=== PATIENT | female | born 1945 | race Two or more races ===

== ENCOUNTER 2024-02-25 10:21 | Emergency (ER) | payer OTHER ==
[~2024-02-25] VITALS: Ht 152.4 cm; Wt 72.9 kg
[~2024-02-25 10:21] MED LIST: AMLO1TAB22 PO; ATEN-60 PO; METF-370 PO
[2024-02-25 11:35] VITALS: BP 144/80; PULSE 100; RESP 18; TEMP 98; O2SAT 96
[2024-02-25] MEDS: HYDROcodone-ACET 5/325MG TAB PO ONE (12:00)
[2024-02-25] MEDS ORDERED: IBUP-1456 PO (12:34)
== END 2024-02-25 12:38 | disposition home or self-care (01) ==
LOC: ER 10:21
DX: M17.12 Unilateral primary osteoarthritis, left knee (principal); E11.9 Type 2 diabetes mellitus without complications; E78.5 Hyperlipidemia, unspecified; I10 Essential (primary) hypertension; Z90.49 Acquired absence of other specified parts of digestive tract; Z90.710 Acquired absence of both cervix and uterus; Z86.73 Personal history of transient ischemic attack (TIA), and cerebral infarction without residual deficits; Z88.6 Allergy status to analgesic agent
CPT/HCPCS: 73562